=== PATIENT | female | born 1990 | race Caucasian/White ===

== ENCOUNTER 2016-06-10 16:46 | Emergency (ER) | payer MEDICAID ==
[~2016-06-10] VITALS: Ht 167.6 cm; Wt 118.0 kg
[2016-06-10 18:26] LABS: APPEARANCE,URINE CLOUDY (CLEAR); GLUCOSE, URINE (UA) NEGATIVE (NEGATIVE); KETONES,URINE NEGATIVE (NEGATIVE); LEUKOCYTE ESTERASE ,URINE LARGE (NEGATIVE); OCCULT BLOOD,URINE NEGATIVE (NEGATIVE); PH,URINE 5.5 (5.0-8.0); PROTEIN,URINE NEGATIVE (NEGATIVE)
[2016-06-10 19:10] LABS: RBC,URINE None Seen /HPF (0-2); SQUAMOUS EPITHELIAL CELL,UR Few /LPF (None Seen); WBC,URINE 26-50 /HPF (0-5)
[2016-06-10] MEDS ORDERED: ACETAMINOPHEN 325 MG TABLET PO ONE (20:00)
[2016-06-10 20:40] VITALS: BP 113/65
== END 2016-06-10 21:04 | disposition home or self-care (01) ==
LOC: EMS 16:51
DX: O23.41 Unspecified infection of urinary tract in pregnancy, first trimester (principal); O20.8 Other hemorrhage in early pregnancy; O26.91 Pregnancy related conditions, unspecified, first trimester; F17.210 Nicotine dependence, cigarettes, uncomplicated; Z3A.12 12 weeks gestation of pregnancy
CPT/HCPCS: 76801; 76817; 87086; 99285

== ENCOUNTER 2018-11-05 00:41 | Emergency (ER) | payer MEDICAID ==
[~2018-11-05] VITALS: Ht 162.6 cm; Wt 100.0 kg
[2018-11-05 01:12] LABS: BASOPHILS % (AUTO) 0.7 % (0.0-2.0); EOSINOPHILS % (AUTO) 0.3 % (1.0-6.0); HEMOGLOBIN 11.6 g/dL (12.0-16.0); LYMPHOCYTES # (AUTO) 3.5 K/uL (1.0-4.8); LYMPHOCYTES % (AUTO) 24.9 % (22.0-44.0); MEAN CORPUSCULAR HEMOGLOBIN 28.5 pg (26.0-34.0); MEAN CORPUSCULAR HGB CONC 32.3 G/dL (31.0-37.0); MEAN CORPUSCULAR VOLUME 88 fL (80-100); MONOCYTES # (AUTO) 1.2 K/uL (0.1-1.0); MONOCYTES % (AUTO) 8.7 % (2.0-9.0); NEUTROPHILS # (AUTO) 9.2 K/uL (1.8-7.7); NEUTROPHILS % (AUTO) 65.4 % (40.0-70.0); PLATELET COUNT (AUTO) 498 K/uL (150-450); RED BLOOD CELL COUNT(AUTO) 4.07 MIL/uL (4.00-5.20); RED CELL DISTRIBUTION WIDTH 13.4 % (11.5-14.5)
[2018-11-05 01:15] LABS: CALCIUM, TOTAL 9.2 mg/dL (8.8-10.5); CREATININE 1.24 mg/dL (0.60-1.30); POTASSIUM 3.3 mmol/L (3.5-5.1)
[2018-11-05 01:24] VITALS: BP 101/74
[2018-11-05] MEDS ORDERED: SODIUM CHLORIDE 0.9% 250 ML IV ONE (01:24)
[2018-11-05 01:26] LABS: ALBUMIN 3.5 g/dL (3.4-5.0); BILIRUBIN,TOTAL 0.3 mg/dL (0.1-1.0); TOTAL PROTEIN, SERUM 7.2 g/dL (6.4-8.2)
[2018-11-05 01:48] LABS: PROTHROMBIN TIME 10.7 SEC (9.4-11.6)
== END 2018-11-05 02:00 | disposition short-term general hospital (02) ==
LOC: EMS 00:42
DX: T79.4XXA Traumatic shock, initial encounter (principal); T74.21XA Adult sexual abuse, confirmed, initial encounter; S39.94XA Unspecified injury of external genitals, initial encounter; N93.9 Abnormal uterine and vaginal bleeding, unspecified; Y93.89 Activity, other specified; Y92.89 Other specified places as the place of occurrence of the external cause; Y99.8 Other external cause status
CPT/HCPCS: 36415; 36430; 80053; 84702; 85025; 85610; 85730; 86850; 86900; 86901; 86920; 93005; 99291; G0480; J7050; P9016